=== PATIENT | male | born 1970 | race African-American/Black ===

== ENCOUNTER 2021-12-18 08:10 | Emergency (ER) | payer SELFPAY ==
[2021-12-18 09:39] LABS: #Basophils 0.1 thou/uL (0.0-0.2); #Eosinphils 0.1 thou/uL (0.0-0.7); #Lymphocytes 1.7 thou/uL (1.20-3.40); #Monocytes 0.5 thou/uL (0.11-0.59); #Neutrophils 4.1 thou/uL (1.40-6.50); %Basophils 0.9 % (0.0-1.0); %Eosinophils 1.7 % (0.0-10.0); %Monocytes 7.5 % (0.0-10.0); Hemoglobin 14.7 g/dL (14.0-18.0); Mean Corpuscular HGB CONC 31.7 g/dL (32.0-36.0); Mean Corpuscular Hemoglobin 30.6 pg (27.0-31.0); Mean Corpuscular Volume 96.5 fL (78.0-98.0); Mean Platelet Volume 8.2 fL (7.4-10.4); Platelet Count 283 thou/uL (130-400); RBC Distribution Width 13.3 % (11.5-14.5); Red Blood Cell (RBC) Count 4.81 mill/uL (4.70-6.10); White Blood Cell (WBC) Count 6.5 thou/uL (4.8-10.8)
[2021-12-18 09:59] LABS: ALT (SGPT) 7 U/L (8-55); AST (SGOT) 10 U/L (5-34); Alkaline Phosphatase 72 U/L (40-110); Anion Gap 15 mmol/L (10-20); BUN (Urea Nitrogen) 19 mg/dL (8.4-25.7); Bilirubin, Total 0.4 mg/dL (0.2-1.2); Calc. Creatinine Clearance 0 mL/min (70-130); Calcium 8.9 mg/dL (7.8-10.44); Carbon Dioxide 26 mmol/L (22-29); Chloride 100 mmol/L (98-107); Estimated GFR 50; Globulin 3.1 g/dL (2.4-3.5); Glucose 237 mg/dL (70-105); Potassium 3.9 mmol/L (3.5-5.1); Protein, Total 7.1 g/dL (6.0-8.3); Sodium 137 mmol/L (136-145)
[2021-12-18] MEDS ORDERED: Amlodipine 5 MG TAB ONE (10:42)
[2021-12-18] MEDS ORDERED: Acetaminophen 500 MG TAB ONE (11:38)
== END 2021-12-18 11:45 | disposition home or self-care (01) ==
LOC: ERS 08:10
DX: E11.65 Type 2 diabetes mellitus with hyperglycemia (principal); I10 Essential (primary) hypertension; F17.210 Nicotine dependence, cigarettes, uncomplicated
CPT/HCPCS: 36415; 71045; 80053; 84443; 84484; 85025; 93005

== ENCOUNTER 2022-02-24 20:42 | Inpatient (IN) | payer SELFPAY ==
[~2022-02-24 20:42] MED LIST: Iopamidol-370 76% 500 ML 1 ML ONE
[2022-02-24] MEDS ORDERED: niCARdipine 25 MG/10 ML VIAL ONE (20:54)
[2022-02-24 21:11] LABS: #Basophils 0.1 thou/uL (0.0-0.2); #Lymphocytes 1.6 thou/uL (1.20-3.40); #Monocytes 0.7 thou/uL (0.11-0.59); #Neutrophils 7.1 thou/uL (1.40-6.50); %Basophils 0.6 % (0.0-1.0); %Eosinophils 0.3 % (0.0-10.0); %Lymphocytes 16.8 % (21.0-51.0); %Monocytes 7.1 % (0.0-10.0); %Neutrophils 75.2 % (42.0-75.0); Hemoglobin 15.2 g/dL (14.0-18.0); Mean Corpuscular HGB CONC 33.6 g/dL (32.0-36.0); Mean Corpuscular Volume 92.1 fL (78.0-98.0); Mean Platelet Volume 7.7 fL (7.4-10.4); Platelet Count 310 thou/uL (130-400); RBC Distribution Width 12.9 % (11.5-14.5); Red Blood Cell (RBC) Count 4.92 mill/uL (4.70-6.10); White Blood Cell (WBC) Count 9.5 thou/uL (4.8-10.8)
[2022-02-24 21:24] LABS: PTT 29.7 sec (22.9-36.1); Prothrombin Time 12.9 sec (12.0-14.7)
[2022-02-24 21:35] LABS: ALT (SGPT) 10 U/L (8-55); AST (SGOT) 15 U/L (5-34); Albumin 4.5 g/dL (3.5-5.0); Alkaline Phosphatase 78 U/L (40-110); Anion Gap 21 mmol/L (10-20); BUN (Urea Nitrogen) 21 mg/dL (8.4-25.7); Bilirubin, Total 0.5 mg/dL (0.2-1.2); CK (CPK) 409 U/L (30-200); Calc. Creatinine Clearance 0 mL/min (70-130); Calcium 9.3 mg/dL (7.8-10.44); Carbon Dioxide 23 mmol/L (22-29); Chloride 100 mmol/L (98-107); Estimated GFR 34; Globulin 3.4 g/dL (2.4-3.5); Glucose 165 mg/dL (70-105); Lipase 8 U/L (8-78); Potassium 3.6 mmol/L (3.5-5.1); Protein, Total 7.9 g/dL (6.0-8.3); Sodium 140 mmol/L (136-145)
[2022-02-24] MEDS ORDERED: Tenecteplase 50 MG - STEMI KIT ONE (21:36)
[2022-02-24 22:27] LABS: SARS-CoV-2 NAA Rapid Test Not Detected (NotDetected)
[2022-02-24] MEDS ORDERED: Communication Order-Pharmacy FS SCH (22:42)
[2022-02-24] MEDS ORDERED: Electrolyte Replacement Protocol 1 EACH FS SCH (23:00)
[2022-02-24 23:39] VITALS: BMI 29.2
[2022-02-25 00:07] LABS: Hemoglobin A1c 7.9 % (4.0-6.0)
[2022-02-25] MEDS ORDERED: HumaLOG 300 UNITS/3 ML VIAL SC PRN (00:31)
[2022-02-25] MEDS ORDERED: Dextrose 5% in Water 1,000 ML IV PRN (00:31)
[2022-02-25] MEDS ORDERED: Dextrose 50% Abboject 50 ML SYRINGE SLOW IVP PRN (00:31)
[2022-02-25] MEDS: niCARdipine 25 MG in Sodium Chloride 0.9% 250 ML 250 ML IVPB PRN ×6 (00:45→10:14)
[2022-02-25 00:59] LABS: Amphetamine Not Detected (NotDetected); Barbiturates Screen Not Detected (NotDetected); Benzodiazepine Screen Not Detected (NotDetected); Cocaine Metabolite Screen Detected (NotDetected); Methadone Not Detected (NotDetected); Methamphetamine Not Detected (NotDetected); Opiate Screen Not Detected (NotDetected); Oxycodone Screen Not Detected (NotDetected); Phencyclidine (PCP) Not Detected (NotDetected); THC/Cannabinoid Screen Not Detected (NotDetected); Tricyclic Screen Not Detected (NotDetected)
[2022-02-25 08:01] LABS: #Eosinphils 0.1 thou/uL (0.0-0.7); #Lymphocytes 1.8 thou/uL (1.20-3.40); #Monocytes 0.6 thou/uL (0.11-0.59); #Neutrophils 5.8 thou/uL (1.40-6.50); %Basophils 0.3 % (0.0-1.0); %Eosinophils 1.5 % (0.0-10.0); %Monocytes 7.4 % (0.0-10.0); %Neutrophils 68.9 % (42.0-75.0); Hemoglobin 15.6 g/dL (14.0-18.0); Mean Corpuscular HGB CONC 32.6 g/dL (32.0-36.0); Mean Corpuscular Volume 91.8 fL (78.0-98.0); Mean Platelet Volume 7.5 fL (7.4-10.4); Platelet Count 321 thou/uL (130-400); RBC Distribution Width 12.9 % (11.5-14.5); Red Blood Cell (RBC) Count 5.19 mill/uL (4.70-6.10); White Blood Cell (WBC) Count 8.4 thou/uL (4.8-10.8)
[2022-02-25] MEDS ORDERED: Lactated Ringer's 1,000 ML IV SCH ×2 (08:15→10:25)
[2022-02-25 08:21] LABS: Anion Gap 15 mmol/L (10-20); BUN (Urea Nitrogen) 12 mg/dL (8.4-25.7); Calc. Creatinine Clearance 86 mL/min (70-130); Calcium 8.8 mg/dL (7.8-10.44); Carbon Dioxide 21 mmol/L (22-29); Cardiac Risk 6.3 (Less than 4.5); Chloride 105 mmol/L (98-107); Cholesterol 233 mg/dl (< 200 Desired); Estimated GFR 57; Glucose 152 mg/dL (70-105); HDL Cholesterol 37 mg/dL (>60 Neg Risk); LDL Cholesterol, Calculated 179 mg/dL; Potassium 3.4 mmol/L (3.5-5.1); Sodium 138 mmol/L (136-145); Triglycerides 87 mg/dL (Less than 150)
[2022-02-25] MEDS ORDERED: Potassium Chloride 20 MEQ TAB PO SCH (10:00)
[2022-02-25] MEDS: Amlodipine 10 MG TAB PO SCH (10:14)
[2022-02-25] MEDS: niCARdipine 50 MG, Admixture Fee 1 EACH in Sodium Chloride 0.9% 250 ML 230 ML IVPB PRN ×3 (12:43→23:57)
[2022-02-25] MEDS: hydrALAZINE 20 MG/ML VIAL SLOW IVP PRN (13:19)
[2022-02-25 14:16] LABS: Potassium 3.4 mmol/L (3.5-5.1)
[2022-02-25] MEDS: Acetaminophen 325 MG TAB PO PRN (15:55)
[2022-02-25] MEDS ORDERED: Losartan 25 MG TAB PO SCH (16:15)
[2022-02-25] MEDS: HumaLOG 300 UNITS/3 ML VIAL SC PRN (16:42)
[2022-02-25] MEDS: Rosuvastatin 20 MG TAB PO SCH (20:36)
[2022-02-25 22:40] LABS: CKMB 2.2 ng/mL (0-6.6)
[2022-02-26 06:57] LABS: #Basophils 0.1 thou/uL (0.0-0.2); #Eosinphils 0.1 thou/uL (0.0-0.7); #Lymphocytes 1.8 thou/uL (1.20-3.40); #Monocytes 0.6 thou/uL (0.11-0.59); #Neutrophils 4.5 thou/uL (1.40-6.50); %Basophils 0.9 % (0.0-1.0); %Eosinophils 1.4 % (0.0-10.0); %Lymphocytes 25.2 % (21.0-51.0); %Monocytes 8.4 % (0.0-10.0); %Neutrophils 64.1 % (42.0-75.0); Hemoglobin 15.7 g/dL (14.0-18.0); Mean Corpuscular HGB CONC 32.9 g/dL (32.0-36.0); Mean Corpuscular Hemoglobin 30.2 pg (27.0-31.0); Mean Platelet Volume 7.2 fL (7.4-10.4); Platelet Count 307 thou/uL (130-400); Red Blood Cell (RBC) Count 5.21 mill/uL (4.70-6.10); White Blood Cell (WBC) Count 6.9 thou/uL (4.8-10.8)
[2022-02-26 07:16] LABS: ALT (SGPT) 8 U/L (8-55); AST (SGOT) 16 U/L (5-34); Albumin 3.9 g/dL (3.5-5.0); Alkaline Phosphatase 74 U/L (40-110); Anion Gap 15 mmol/L (10-20); BUN (Urea Nitrogen) 9 mg/dL (8.4-25.7); Bilirubin, Total 0.6 mg/dL (0.2-1.2); Calc. Creatinine Clearance 93 mL/min (70-130); Calcium 8.7 mg/dL (7.8-10.44); Carbon Dioxide 22 mmol/L (22-29); Chloride 105 mmol/L (98-107); Estimated GFR 62; Globulin 3.1 g/dL (2.4-3.5); Glucose 150 mg/dL (70-105); Potassium 3.7 mmol/L (3.5-5.1); Sodium 138 mmol/L (136-145)
[2022-02-26] MEDS: Losartan 25 MG TAB PO SCH (07:25)
[2022-02-26] MEDS: Amlodipine 10 MG TAB PO SCH (07:25)
[2022-02-26] MEDS: Aspirin 81 mg Enteric Coated Tablet PO SCH (07:25)
[2022-02-26] MEDS: Enoxaparin Sodium 40 MG/0.4 ML SYRINGE SC SCH (07:26)
[2022-02-26] MEDS ORDERED: Clopidogrel Bisulfate 75 MG TAB PO SCH (09:00)
[2022-02-26] MEDS: Hydrochlorothiazide 25 MG TAB PO SCH (09:18)
[2022-02-26] MEDS: Rosuvastatin 20 MG TAB PO SCH (20:40)
[2022-02-26] MEDS: Acetaminophen 325 MG TAB PO PRN (20:56)
[2022-02-27 05:50] LABS: #Basophils 0.1 thou/uL (0.0-0.2); #Eosinphils 0.1 thou/uL (0.0-0.7); #Monocytes 0.6 thou/uL (0.11-0.59); #Neutrophils 3.4 thou/uL (1.40-6.50); %Basophils 0.9 % (0.0-1.0); %Eosinophils 2.1 % (0.0-10.0); %Lymphocytes 31.6 % (21.0-51.0); %Monocytes 10.3 % (0.0-10.0); %Neutrophils 55.1 % (42.0-75.0); Hemoglobin 14.9 g/dL (14.0-18.0); Mean Corpuscular HGB CONC 32.7 g/dL (32.0-36.0); Mean Corpuscular Hemoglobin 30.1 pg (27.0-31.0); Mean Corpuscular Volume 91.9 fL (78.0-98.0); Mean Platelet Volume 7.6 fL (7.4-10.4); Platelet Count 296 thou/uL (130-400); Red Blood Cell (RBC) Count 4.97 mill/uL (4.70-6.10); White Blood Cell (WBC) Count 6.2 thou/uL (4.8-10.8)
[2022-02-27 06:12] LABS: ALT (SGPT) 7 U/L (8-55); AST (SGOT) 12 U/L (5-34); Albumin 3.9 g/dL (3.5-5.0); Alkaline Phosphatase 78 U/L (40-110); Anion Gap 15 mmol/L (10-20); BUN (Urea Nitrogen) 9 mg/dL (8.4-25.7); Bilirubin, Total 0.7 mg/dL (0.2-1.2); Calc. Creatinine Clearance 88 mL/min (70-130); Calcium 8.9 mg/dL (7.8-10.44); Carbon Dioxide 25 mmol/L (22-29); Chloride 101 mmol/L (98-107); Estimated GFR 58; Globulin 3.2 g/dL (2.4-3.5); Glucose 145 mg/dL (70-105); Potassium 3.8 mmol/L (3.5-5.1); Protein, Total 7.1 g/dL (6.0-8.3); Sodium 137 mmol/L (136-145)
[2022-02-27] MEDS: HumaLOG 300 UNITS/3 ML VIAL SC PRN ×2 (06:24→11:08)
[2022-02-27] MEDS: Losartan 25 MG TAB PO SCH (08:37)
[2022-02-27] MEDS: Hydrochlorothiazide 25 MG TAB PO SCH (08:37)
[2022-02-27] MEDS: Aspirin 81 mg Enteric Coated Tablet PO SCH (08:38)
[2022-02-27] MEDS: Amlodipine 10 MG TAB PO SCH (08:38)
[2022-02-27] MEDS: hydrALAZINE 20 MG/ML VIAL SLOW IVP PRN (08:39)
[2022-02-27] MEDS: Enoxaparin Sodium 40 MG/0.4 ML SYRINGE SC SCH (08:41)
[2022-02-27] MEDS ORDERED: Losartan 25 MG TAB PO SCH (10:30)
[2022-02-27] MEDS: Labetalol HCl 100 MG/20 ML VIAL SLOW IVP PRN (12:43)
[2022-02-27] MEDS: Carvedilol 6.25 MG TAB PO SCH (17:14)
[2022-02-27] MEDS: Rosuvastatin 20 MG TAB PO SCH (20:31)
[2022-02-28 05:06] LABS: #Basophils 0.1 thou/uL (0.0-0.2); #Eosinphils 0.1 thou/uL (0.0-0.7); #Lymphocytes 1.8 thou/uL (1.20-3.40); #Monocytes 0.7 thou/uL (0.11-0.59); #Neutrophils 3.9 thou/uL (1.40-6.50); %Basophils 1.1 % (0.0-1.0); %Eosinophils 1.7 % (0.0-10.0); %Lymphocytes 27.1 % (21.0-51.0); %Monocytes 10.1 % (0.0-10.0); %Neutrophils 60.1 % (42.0-75.0); Hemoglobin 15.3 g/dL (14.0-18.0); Mean Corpuscular HGB CONC 32.8 g/dL (32.0-36.0); Mean Corpuscular Hemoglobin 30.1 pg (27.0-31.0); Mean Corpuscular Volume 91.9 fL (78.0-98.0); Mean Platelet Volume 7.5 fL (7.4-10.4); Platelet Count 298 thou/uL (130-400); RBC Distribution Width 12.8 % (11.5-14.5); Red Blood Cell (RBC) Count 5.07 mill/uL (4.70-6.10); White Blood Cell (WBC) Count 6.5 thou/uL (4.8-10.8)
[2022-02-28 05:29] LABS: ALT (SGPT) 9 U/L (8-55); AST (SGOT) 11 U/L (5-34); Albumin 4.1 g/dL (3.5-5.0); Alkaline Phosphatase 77 U/L (40-110); Anion Gap 15 mmol/L (10-20); BUN (Urea Nitrogen) 14 mg/dL (8.4-25.7); Bilirubin, Total 0.5 mg/dL (0.2-1.2); Calc. Creatinine Clearance 87 mL/min (70-130); Calcium 9.3 mg/dL (7.8-10.44); Carbon Dioxide 24 mmol/L (22-29); Chloride 102 mmol/L (98-107); Estimated GFR 57; Globulin 3.2 g/dL (2.4-3.5); Glucose 168 mg/dL (70-105); Potassium 3.6 mmol/L (3.5-5.1); Protein, Total 7.3 g/dL (6.0-8.3); Sodium 137 mmol/L (136-145)
[2022-02-28] MEDS: Carvedilol 6.25 MG TAB PO SCH (08:24)
[2022-02-28] MEDS: Aspirin 81 mg Enteric Coated Tablet PO SCH (08:24)
[2022-02-28] MEDS: Amlodipine 10 MG TAB PO SCH (08:24)
[2022-02-28] MEDS: Hydrochlorothiazide 25 MG TAB PO SCH (08:24)
[2022-02-28] MEDS: Losartan 25 MG TAB PO SCH (08:24)
[2022-02-28] MEDS: Enoxaparin Sodium 40 MG/0.4 ML SYRINGE SC SCH (08:27)
[2022-02-28] MEDS ORDERED: Carvedilol 6.25 MG TAB PO SCH (11:00)
[2022-02-28] MEDS: Labetalol HCl 100 MG/20 ML VIAL SLOW IVP PRN (16:46)
[2022-02-28] MEDS: Rosuvastatin 20 MG TAB PO SCH (20:39)
[2022-02-28] MEDS ORDERED: Carvedilol 25 MG TAB PO SCH ×2 (20:45→21:00)
[2022-02-28] MEDS: Acetaminophen 325 MG TAB PO PRN (20:46)
[2022-03-01] MEDS: HumaLOG 300 UNITS/3 ML VIAL SC PRN ×2 (06:01→11:35)
[2022-03-01] MEDS: Hydrochlorothiazide 25 MG TAB PO SCH (08:51)
[2022-03-01] MEDS: Aspirin 81 mg Enteric Coated Tablet PO SCH (08:51)
[2022-03-01] MEDS: Amlodipine 10 MG TAB PO SCH (08:51)
[2022-03-01] MEDS: Losartan 25 MG TAB PO SCH (08:51)
[2022-03-01] MEDS: Carvedilol 25 MG TAB PO SCH ×2 (08:51→17:25)
[2022-03-01] MEDS: Enoxaparin Sodium 40 MG/0.4 ML SYRINGE SC SCH (08:53)
[2022-03-01] MEDS ORDERED: NIFEdipine XL 30 MG TAB PO SCH (09:15)
[2022-03-01] MEDS: NIFEdipine XL 60 MG TAB PO SCH (09:40)
[2022-03-01] MEDS ORDERED: hydrALAZINE 20 MG/ML VIAL SLOW IVP PRN (13:23)
[2022-03-01] MEDS: Labetalol HCl 100 MG/20 ML VIAL SLOW IVP PRN (16:34)
[2022-03-01] MEDS: Rosuvastatin 20 MG TAB PO SCH (21:21)
[2022-03-02] MEDS: Carvedilol 25 MG TAB PO SCH (08:22)
[2022-03-02] MEDS: NIFEdipine XL 60 MG TAB PO SCH (08:22)
[2022-03-02] MEDS: Hydrochlorothiazide 25 MG TAB PO SCH (08:22)
[2022-03-02] MEDS: Enoxaparin Sodium 40 MG/0.4 ML SYRINGE SC SCH (08:23)
[2022-03-02] MEDS: Losartan 25 MG TAB PO SCH (08:23)
[2022-03-02] MEDS: Aspirin 81 mg Enteric Coated Tablet PO SCH (08:23)
[2022-03-02 08:31] VITALS: TEMP 98.2
[2022-03-02 08:58] LABS: #Basophils 0.1 thou/uL (0.0-0.2); #Eosinphils 0.1 thou/uL (0.0-0.7); #Lymphocytes 1.8 thou/uL (1.20-3.40); #Monocytes 0.6 thou/uL (0.11-0.59); #Neutrophils 3.2 thou/uL (1.40-6.50); %Eosinophils 1.9 % (0.0-10.0); %Lymphocytes 30.9 % (21.0-51.0); %Monocytes 10.4 % (0.0-10.0); %Neutrophils 55.7 % (42.0-75.0); Hemoglobin 15.9 g/dL (14.0-18.0); Mean Corpuscular HGB CONC 32.2 g/dL (32.0-36.0); Mean Corpuscular Hemoglobin 29.9 pg (27.0-31.0); Mean Corpuscular Volume 92.9 fL (78.0-98.0); Mean Platelet Volume 7.7 fL (7.4-10.4); Platelet Count 316 thou/uL (130-400); RBC Distribution Width 12.9 % (11.5-14.5); Red Blood Cell (RBC) Count 5.31 mill/uL (4.70-6.10); White Blood Cell (WBC) Count 5.7 thou/uL (4.8-10.8)
[2022-03-02 09:24] LABS: Anion Gap 13 mmol/L (10-20); BUN (Urea Nitrogen) 16 mg/dL (8.4-25.7); Calc. Creatinine Clearance 80 mL/min (70-130); Calcium 9.6 mg/dL (7.8-10.44); Carbon Dioxide 27 mmol/L (22-29); Chloride 100 mmol/L (98-107); Estimated GFR 53; Glucose 156 mg/dL (70-105); Potassium 4.4 mmol/L (3.5-5.1); Sodium 136 mmol/L (136-145)
[2022-03-02] MEDS: HumaLOG 300 UNITS/3 ML VIAL SC PRN (12:07)
[2022-03-02 12:34] VITALS: BP 129/86
== END 2022-03-02 17:00 | disposition home or self-care (01) | DRG 62 ==
LOC: ERS 20:42 → CCU 21:43 → NEURO 02-26 15:47
PROVIDERS: ADMIT Family Medicine; ATTEND Family Medicine
DX: I63.9 Cerebral infarction, unspecified (principal); G81.94 Hemiplegia, unspecified affecting left nondominant side; I16.1 Hypertensive emergency; N17.9 Acute kidney failure, unspecified; Z20.822 Contact with and (suspected) exposure to COVID-19; F14.10 Cocaine abuse, uncomplicated; F17.210 Nicotine dependence, cigarettes, uncomplicated; E11.9 Type 2 diabetes mellitus without complications; F12.10 Cannabis abuse, uncomplicated; E78.5 Hyperlipidemia, unspecified; R29.810 Facial weakness; E87.6 Hypokalemia; R29.714 NIHSS score 14; R47.1 Dysarthria and anarthria; Z71.51 Drug abuse counseling and surveillance of drug abuser; Z71.6 Tobacco abuse counseling; Z91.14 Patient's other noncompliance with medication regimen
CPT/HCPCS: 36415; 36416; 70450; 70496; 70498; 70551; 71045; 80048; 80053; 80061; 80306; 82550; 82553; 83036; 83605; 83690; 84443; 84484; 85025; 85610; 85730; 93005; 93306; 95712; 95819; 95957; 96365; 96366; 96375; J0360; J1650; J1815; J3101; J7050; J7120; Q9967; U0002

== ENCOUNTER 2024-03-14 12:37 | Emergency (ER) | payer SELFPAY | END 2024-03-14 12:44 | disposition left against medical advice (07) | LOC: ERS 12:37 | DX: Z53.21 Procedure and treatment not carried out due to patient leaving prior to being seen by health care provider (principal) ==